=== PATIENT | female | born 1980 | race African-American/Black ===

== ENCOUNTER 2020-06-02 09:24 | Outpatient (REF) | payer OTHER, SELFPAY ==
[2020-06-02 11:23] LABS: COVID-19 Test Negative (Negative)
== END 2020-06-02 09:25 | disposition home or self-care (01) ==
LOC: HO.LAB 09:24
PROVIDERS: Visit Provider Internal Medicine
DX: Z20.822 Contact with and (suspected) exposure to COVID-19 (principal)
CPT/HCPCS: 36415; 87635; C9803

== ENCOUNTER 2020-06-07 12:59 | Outpatient (REF) | payer OTHER, SELFPAY ==
[2020-06-07 14:37] LABS: COVID-19 Test Negative (Negative); IDNOW Serial# 55D5AD1C
== END 2020-06-07 13:00 | disposition home or self-care (01) ==
LOC: HO.LAB 12:59
PROVIDERS: Visit Provider Internal Medicine
DX: Z20.822 Contact with and (suspected) exposure to COVID-19 (principal)
CPT/HCPCS: 36415; 87635; C9803

== ENCOUNTER 2020-09-13 10:07 | Outpatient (REF) | payer OTHER, SELFPAY | END 2020-09-13 10:08 | disposition home or self-care (01) | LOC: HO.LAB 10:07 | PROVIDERS: Visit Provider Internal Medicine | DX: Z20.822 Contact with and (suspected) exposure to COVID-19 (principal) | CPT/HCPCS: C9803; U0003; U0005 ==